=== PATIENT | female | born 1990 | race Two or more races ===

== ENCOUNTER 2024-02-25 15:44 | Outpatient (CLI) | payer MEDICAID ==
[~2024-02-25] VITALS: Ht 151.1 cm; Wt 98.9 kg
[2024-02-25 17:28] VITALS: PULSE 95; RESP 14; O2SAT 98
[2024-02-25 17:39] VITALS: PULSE 94; RESP 15
== END 2024-02-25 23:59 | disposition home or self-care (01) ==
LOC: RT 15:44
PROVIDERS: ATTEND Family Medicine
DX: I08.8 Other rheumatic multiple valve diseases (principal); J45.51 Severe persistent asthma with (acute) exacerbation
CPT/HCPCS: 93306; 94060; 94729; 94760